=== PATIENT | female | born 1985 | race Caucasian/White ===

== ENCOUNTER 2017-06-20 05:21 | Observation (INO) | payer BC ==
[2017-06-20] MEDS ORDERED: NS 0.9% 1000 ML* 1,000 ML IV ONE (05:45)
[2017-06-20] MEDS ORDERED: Morphine INJ* 2 MG/ML 1 ML SYRINGE IV ONE (05:45)
[2017-06-20 05:56] LABS: Hematocrit 30 % (35-47); Hemoglobin 9.1 g/dl (12.0-16.0); Mean Corpuscular HGB Conc 30 g/dl (31-36); Mean Corpuscular Hemoglobin 20 pg (27-31); Mean Corpuscular Volume 65 fL (80-97); Mean Platelet Volume 9 um3 (7.4-10.4); Red Blood Count 4.59 10^6/ul (4.0-5.4); Red Cell Distribution Width 21 % (10.5-15); White Blood Count 9.2 10^3/ul (3.5-10.8)
[2017-06-20 05:57] LABS: Add Diff/Slide Review? Slide Review Added; Comments Flag Yes
[2017-06-20 06:08] LABS: ALT 61 U/L (7-52); AST 56 U/L (13-39); Albumin 4.2 g/dL (3.2-5.2); Alkaline Phosphatase 56 U/L (34-104); Anion Gap 11 mmol/L (2-11); BUN/Creatinine Ratio 20.3 (8-20); Blood Urea Nitrogen 13 mg/dL (6-24); C Reactive Protein < 1.00 mg/L (< 5.00); CO2 Carbon Dioxide 19 mmol/L (22-32); Chloride 103 mmol/L (101-111); EGFR African American 136.6 (>60); EGFR Non-African American 106.2 (>60); Glucose 143 mg/dL (70-100); Lipase 45 U/L (11.0-82.0); Potassium 3.8 mmol/L (3.5-5.0); Sodium 133 mmol/L (133-145); Total Protein 7.2 g/dL (6.4-8.9)
--- NOTE | 2017-06-20 06:54 | ED ---
I, Oh,Somalgorzata, scribed for Patrice Cornelius MD on 06/20/17 at 0552 . Abdominal Pain/Female - HPI Summary HPI Summary: This 32 y/o female presents to ED via ambulance for gradually worsening diffuse abd pain since 2300 PM tonight. Pt reports that she has had recurrent episodes of similar abd pain since 1+ year ago but has not followed up that she hasn't followed up. "I hate going to doctors". She states that tonight's episode is more persistent and more severe. Positive nausea and dry heaving. Negative diarrhea or dysuria. PMHx includes gastric bypass that was done in [place] in 2012. - History of Current Complaint Chief Complaint: EDAbdPain Stated Complaint: ABD PAIN Time Seen by Provider: 06/20/17 05:40 Hx Obtained From: Patient Onset/Duration: Gradual Onset, Still Present Pain Intensity: 10 Pain Scale Used: 0-10 Numeric Location: Diffuse Radiates: No Character: Dull, Burning Aggravating Factor(s): Nothing Alleviating Factor(s): Nothing Associated Signs and Symptoms: Positive: Nausea. Negative: Fever, Urinary Symptoms, Diarrhea Allergies/Adverse Reactions: Allergies Allergy/AdvReac Type Severity Reaction Status Date / Time No Known Allergies Allergy Verified 06/20/17 05:31 Home Medications: Home Medications Calcium [Oyster-Stan 500] 500 mg PO DAILY 06/20/17 [History Confirmed 06/20/17] Cyanocobalamin TAB* [Vitamin B12 TAB*] 1,000 mcg PO DAILY 06/20/17 [History Confirmed 06/20/17] PMH/Surg Hx/FS Hx/Imm Hx Endocrine/Hematology History: Denies: Hx Diabetes - Surgical History Surgery Procedure, Year, and Place: Gastric Bypass in 2012. [place] Infectious Disease History: No Infectious Disease History: Denies: Traveled Outside the [place] in Last 30 Days - Social History Alcohol Use: None Substance Use Type: Reports: None Smoking Status (MU): Never Smoked Tobacco Review of Systems Negative: Fever Positive: Abdominal Pain, Nausea, Other - Positive dry heaving. Negative: Diarrhea Negative: dysuria All Other Systems Reviewed And Are Negative: Yes Physical Exam Triage Information Reviewed: Yes Vital Signs On Initial Exam: Initial Vitals Temp Pulse Resp BP Pulse Ox 97.3 F 66 16 125/93 100 06/20/17 05:29 06/20/17 05:29 06/20/17 05:29 06/20/17 05:29 06/20/17 05:29 Vital Signs Reviewed: Yes Appearance: Positive: Well-Appearing, Pain Distress - moderate discomfort Skin: Positive: Warm Head/Face: Positive: Normal Head/Face Inspection Eyes: Positive: NORMAN ENT: Positive: Hearing grossly normal Neck: Positive: Supple Respiratory/Lung Sounds: Positive: Breath Sounds Present Cardiovascular: Positive: RRR Abdomen Description: Positive: Soft, Other: - moderate diffuse upper abd tenderness Bowel Sounds: Positive: Present Musculoskeletal: Positive: Strength/ROM Intact Neurological: Positive: Alert, Oriented to Person Place, Time Psychiatric: Positive: Affect/Mood Appropriate - [place] Coma Scale Coma Scale Total: 15 Diagnostics - Vital Signs Vital Signs Temp Pulse Resp BP Pulse Ox 06/20/17 05:29 97.3 F 66 16 125/93 100 - Laboratory Lab Results: Lab Results 06/20/17 06/20/17 06/20/17 Range/Units 05:40 05:40 05:40 WBC 9.2 (3.5-10.8) 10^3/ul RBC 4.59 (4.0-5.4) 10^6/ul Hgb 9.1 L (12.0-16.0) g/dl Hct 30 L (35-47) % MCV 65 L (80-97) fL MCH 20 L (27-31) pg MCHC 30 L (31-36) g/dl RDW 21 H (10.5-15) % Plt Count 343 (150-450) 10^3/ul MPV 9 (7.4-10.4) um3 Neut % (Auto) 82.1 (38-83) % Lymph % (Auto) 10.7 L (25-47) % [place] % (Auto) 4.0 (1-9) % Eos % (Auto) 0.9 (0-6) % Baso % (Auto) 2.3 H (0-2) % Absolute Neuts (auto) 7.5 (1.5-7.7) 10^3/ul Absolute Lymphs (auto) 1.0 (1.0-4.8) 10^3/ul Absolute Monos (auto) 0.4 (0-0.8) 10^3/ul Absolute Eos (auto) 0.1 (0-0.6) 10^3/ul Absolute Basos (auto) 0.2 (0-0.2) 10^3/ul Absolute Nucleated RBC 0 10^3/ul Nucleated RBC % 0 Sodium 133 (133-145) mmol/L Potassium 3.8 (3.5-5.0) mmol/L Chloride 103 (101-111) mmol/L Carbon Dioxide 19 L (22-32) mmol/L Anion Gap 11 (2-11) mmol/L BUN 13 (6-24) mg/dL Creatinine 0.64 (0.51-0.95) mg/dL Est GFR ( Amer) 136.6 (>60) Est GFR (Non-Af Amer) 106.2 (>60) BUN/Creatinine Ratio 20.3 H (8-20) Glucose 143 H (70-100) mg/dL Lactic Acid 2.7 H* (0.5-2.0) mmol/L Calcium 9.0 (8.6-10.3) mg/dL Total Bilirubin 0.40 (0.2-1.0) mg/dL AST 56 H (13-39) U/L ALT 61 H (7-52) U/L Alkaline Phosphatase 56 (34-104) U/L C-Reactive Protein < 1.00 (< 5.00) mg/L Total Protein 7.2 (6.4-8.9) g/dL Albumin 4.2 (3.2-5.2) g/dL Globulin 3.0 (2-4) g/dL Albumin/Globulin Ratio 1.4 (1-3) Lipase 45 (11.0-82.0) U/L Beta HCG, Quant < 0.60 mIU/mL Result Diagrams: 06/20/17 05:40 06/20/17 05:40 Lab Statement: Any lab studies that have been ordered have been reviewed, and results considered in the medical decision making process. - CT Ab/P CT Interpretation Completed By: Radiologist - Pending image. See EMR for official reading Abdominal Pain Fem Course/Dx - Diagnoses Provider Diagnoses: Internal hernia - Provider Notifications Instructed by Provider To: Admit As Inpatient Discharge - Discharge Plan Condition: Fair Disposition: ADMITTED TO [facility] Discharge Disposition Comment: Signed out at shift chage. Pending CT imaging. The documentation as recorded by the scribe Oh,Soohyun accurately reflects the service I personally performed and the decisions made by me, Patrice Cornelius MD.
[2017-06-20] MEDS ORDERED: Iohexol 300* (CONTRAST) 10 ML SDV IV ONE (07:54)
--- NOTE | 2017-06-20 08:31 | RAD ---
Indication: Right upper quadrant pain. Diffuse abdominal pain. Patient is status post Mora-en-Y gastric bypass. Contrast: Administered 97.0 ml of OMNIPAQUE 300 mgi/ml CT of the abdomen and pelvis was performed after oral and IV contrast demonstration. Coronal and sagittal reconstructed images were obtained. The lung bases demonstrate no pleural fluid, nodules or masses. Heart is of normal size without evidence of pericardial effusion. Liver is normal in size. No focal lesions or intrahepatic ductal dilatation is noted. The gallbladder is distended. The pancreas demonstrates no mass or pancreatic duct dilatation. The common duct is not dilated. No pericholecystic fluid or wall thickening is noted. The spleen is normal in size. No adrenal masses are noted. The kidneys demonstrate symmetric nephrograms without focal lesions. There is diffuse edema in the mesentery. There appears to be were pulled following of the superior mesenteric vein surrounding the superior mesenteric artery with central location of the colon. This is suspicious for an internal hernia. There is contrast in the small bowel. A small amount of free fluid is noted in the pelvis. The uterus and ovaries are grossly unremarkable with follicles in both ovaries. IMPRESSION: THERE IS DIFFUSE EDEMA IN THE MESENTERY. THERE IS SPIRALING OF THE SUPERIOR MESENTERIC VEIN SURROUNDING THE SUPERIOR MESENTERIC ARTERY. THERE IS ALSO PERIPHERAL LOCATION OF SMALL BOWEL. THE POSSIBILITY OF AN INTERNAL HERNIA ESPECIALLY AFTER MORA-EN-Y SURGERY SHOULD BE CONSIDERED. Dr. Neal was notified of the results at 8:30 AM.
[2017-06-20 09:33] LABS: Urine Bilirubin Negative (Negative); Urine Glucose Negative (Negative); Urine Nitrite Negative (Negative)
[2017-06-20] MEDS ORDERED: Ondansetron INJ* 2 MG/ML VIAL IV PRN ×2 (10:41→17:01)
[2017-06-20] MEDS ORDERED: ceFAZolin 2 GM PREMIX(*) 2 GM/50 ML BAG IVPB ONE ×2 (10:47→16:07)
[2017-06-20] MEDS ORDERED: Pantoprazole IV* 40 MG IV SCH (11:00)
--- NOTE | 2017-06-20 14:18 | HP ---
AMENDED REPORT NOW INCLUDES COSIGNER DESIGNATION HISTORY AND PHYSICAL: DATE OF ADMISSION: 06/20/17 ATTENDING PHYSICIAN: Arsh Celaya MD * (DICTATED BY [facility]) CHIEF COMPLAINT: Abdominal pain. HISTORY OF PRESENT ILLNESS: Neena is a pleasant 32-year-old female who presented to the emergency room earlier this morning with complaints of worsening diffuse abdominal pain since 11 o'clock last night. Patient notes that she had similar recurrent episodes of abdominal pain for the past year or so but she has never had to follow up with any physician. She went to the urgent care clinic 1 time about a year ago with similar complaints of pain and was diagnosed with acid reflux for which she has been taking Zantac on intermittent basis. She described last night episode as the worst abdominal pain she ever had. It was sharp and intense, 10/10, localize to the middle abdomen and left upper quadrant with no radiation. She also described associated nausea and dry heaving, but denies any vomiting, changes in the bowel habits or any other associated symptoms. She also had some "chills," but denies any fever, dysuria, flank pain, or any history of urinary issues. It is to be noted that patient had a gastric bypass surgery done in [place], [place] in March of 2013. She has done extremely well after her surgery and lost approximately 105 pounds up-to-date. She had followed up with her bariatric program down in [place] for the first year, but then after that she had decided to manage her own followup visit with her primary care physician. She otherwise is extremely healthy 32-year-old female with no significant past medical history with the exception of morbid obesity. During her ER visit, she had laboratory workup that revealed anemia as well as a CT scan of the abdomen and pelvis that was concerning for the possibility of internal hernia with twisting of mesenteric vein as well as mesenteric edema. Given her ongoing symptoms and the finding of the CT scan, we were asked to see the patient for further evaluation of abdominal pain. PAST MEDICAL HISTORY: Significant for morbid obesity for which the patient had gastric bypass surgery in 2012. She denies any history of lung, liver, heart or kidney disease. PAST SURGICAL HISTORY: Significant for laparoscopic Mora-en-Y gastric bypass in [place], [place] in March of 2013. She also had wisdom teeth extraction years ago. CURRENT MEDICATIONS: Her medications at home include: 1. Calcium supplement 500 mg tablet once daily. 2. Vitamin B12 tablets 1000 mcg once daily. ALLERGIES: She has no known drug allergies. FAMILY HISTORY: Noncontributory. SOCIAL HISTORY: Patient is a nonsmoker, who denies alcohol intake and caffeine intake is minimal. REVIEW OF SYSTEMS: See HPI, otherwise negative. She admits to abdominal pain, intermittent with worst episode ever started last night with associated nausea and dry heaving, but denies any vomiting, recent changes in the bowel habits, melena, or bleeding per rectum. She denies any chest pain, shortness of breath , palpitation, sore throat, or cough. No back pain, flank pain, dysuria, hematuria, or urinary frequency. She had dry chills last night but denies any fever, night sweats, or recent weight loss. PHYSICAL EXAMINATION GENERAL: She is a pleasant, healthy-appearing young female, in no acute distress or discomfort at the time of admission. VITAL SIGNS: Her most recent set of vitals revealed a temperature of 97.3, pulse of 82, respiration of 19, O2 sat of 98% on room air, and blood pressure of 115/80. HEENT: Sclerae anicteric, PERRLA, EOMs intact. Oropharynx is pink, moist with no exudate. NECK: Supple. Trachea midline. No cervical adenopathy, thyromegaly or JVD. LUNGS: Clear to auscultation bilaterally. HEART: Regular rate and rhythm. Normal S1 and S2 without rubs, murmurs, or gallops. BACK: With normal curvature. No CVA tenderness. BREASTS: Deferred at this time. ABDOMEN: Soft and nondistended. There is moderate periumbilical and left upper quadrant tenderness noted on deep palpation. There is no guarding, rigidity, or rebound tenderness. Old incisions from prior bypass surgery are well healed. There is no evidence of ventral hernia. There is no other hernias , masses, or hepatosplenomegaly. EXTREMITIES: Without cyanosis, clubbing, or edema. RECTAL: Deferred at this time. NEUROLOGIC: Grossly intact. LABORATORY WORKUP: CBC obtained earlier this morning was white count of 9000, hemoglobin 9.1, hematocrit of 30, and platelets of 343. Her chemistry showed sodium of 133, potassium 3.8, chloride 103, CO2 of 19, BUN 13, and creatinine of 0.6. Her glucose was 143. LFTs, C-reactive protein, amylase and lipase essentially within normal limits. Her lactic acid was elevated with value of 2.7. ACCESSORY DIAGNOSTIC DATA: Patient had a CT scan of the abdomen and pelvis as mentioned above that showed diffuse edema of the mesentery with spiraling of the superior mesenteric vein surrounding the superior mesenteric artery with also peripheral location of the small bowel, all consistent was possibility of internal hernia in the setting of Mora-en-Y bypass. IMPRESSION: A 32-year-old female, status post laparoscopic Mora-en-Y gastric bypass in March of 2015 with acute onset of abdominal pain and CT scan finding with high possibility of internal hernia. PLAN: The case was discussed with Dr. Celaya, who is covering for bariatric services at [facility]. Given her ongoing symptoms and the finding of the CT scan, we discussed with her admission for observation under surgical services and the likelihood of taking her to the operating room this afternoon for a diagnostic laparoscopy. The rationale, indications, risks, and benefits of surgery were discussed with her today. Risks include but not limited to infection, bleeding , or injury to adjacent structures. We stressed with her the importance of laparoscopic possible open evaluation given that significant mesenteric edema and the high risk of any mesenteric occlusion or small bowel necrosis given her internal hernia. Patient will be directly admitted under surgical services. We will keep her NPO and will provide the PPI and DVT prophylaxis. She will be likely taken to the operating room this afternoon for a diagnostic laparoscopy, possible laparotomy and repair of internal hernia. [facility] [place] [id number]/[facility] #: [id number] KIMBERLY
[2017-06-20] MEDS ORDERED: Bupivacaine 0.25% SDV* 30 ML ONE (15:02)
[2017-06-20] MEDS ORDERED: Bupivacaine 0.5% W/EPI SDV* 10 ML VIAL INJ ONE (15:03)
[2017-06-20] MEDS ORDERED: Buffered Lidocaine 0.9% SYRIN* 5 ML/SYR SYRINGE ONE (15:35)
[2017-06-20] MEDS ORDERED: Midazolam* 1 MG/ML 2 ML VIAL (2 MG) ONE (15:45)
[2017-06-20] MEDS ORDERED: fentaNYL* 50 MCG/ML 2 ML VIAL (100 MCG VIAL) ONE ×2 (15:45→17:04)
[2017-06-20] MEDS ORDERED: Famotidine IV* 10 MG/ML 2 ML (20 mg) ONE (16:34)
[2017-06-20] MEDS ORDERED: Dexamethasone IV* 4 MG/ML 1 ML (4 MG) ONE (16:34)
[2017-06-20] MEDS ORDERED: Ondansetron INJ* 2 MG/ML VIAL ONE (16:34)
[2017-06-20] MEDS ORDERED: Propofol* 10 MG/ML 20 ML BTL IV PUSH ONE (16:34)
[2017-06-20] MEDS ORDERED: Succinylcholine* 20 MG/ML 10 ML VIAL ONE (16:34)
[2017-06-20] MEDS ORDERED: Lidocaine 2% PF * 5 ML VIAL ONE (16:34)
[2017-06-20] MEDS ORDERED: Cisatracurium* 2 MG/ML MDV 5 ML ONE (16:34)
--- NOTE | 2017-06-20 16:34 | ED ---
Mack Vtiale Thomas, scribed for Ese Beatty MD on 06/20/17 at 0832 . Progress - Progress Note Progress Note: The patient is a sign out from Dr. Cornelius, pending labs and CT results. CT Abd/Pel reveals THERE IS DIFFUSE EDEMA IN THE MESENTERY. THERE IS SPIRALING OF THE SUPERIOR MESENTERIC VEIN SURROUNDING THE SUPERIOR MESENTERIC ARTERY. THERE IS ALSO PERIPHERAL LOCATION OF SMALL BOWEL. THE POSSIBILITY OF AN INTERNAL HERNIA ESPECIALLY AFTER RUDOLPH-EN-Y SURGERY SHOULD BE CONSIDERED, personally communicated by Dr. Dodge at 0827 to me. At examination at 09:01, the patent supplied additional history. She reports LUQ abd pain. She reports that she lost 110 pounds after her Rudolph-En surgery at [facility]. She additionally c/o dry heaving. The pt denies diarrhea and bloody stools. LNMP 2 weeks ago (pt notes that it is irregular). She takes a multivitamin and B12 daily. PMHx: previously health. PSHx: wisdom teeth removal. SHx: no alcohol/tobacco/drugs. FHx: rheumatoid arthritis. I also talked to Dr. Manning at 09:30, who informed me that one of us will be in . UA reveals specific gravity 1.059, 2+ ketones. Course/Dx - Diagnoses Provider Diagnoses: Internal hernia - Provider Notifications Discussed Care Of Patient With: Kenzie Dodge Time Discussed With Above Provider: 08:27 Instructed by Provider To: Admit As Inpatient - Dr Dodge, radiology, is suspicious for internal hernia on her CT Abd/Pel; Discussed with Jesus Terrell PA evaluated pt with Dr. Celaya, media monitor for bariatric surg. Admit surg, to OR The documentation as recorded by the Mack joshua Thomas accurately reflects the service I personally performed and the decisions made by me, Ese Beatty MD.
[2017-06-20] MEDS ORDERED: Buffered Lidocaine 0.9% SYRIN* 5 ML/SYR SYRINGE INTRADERM ONE (17:00)
[2017-06-20] MEDS ORDERED: HYDROmorphone* 1 MG/ML 1 ML SYR IV PRN (17:01)
[2017-06-20] MEDS ORDERED: fentaNYL* 50 MCG/ML 2 ML VIAL (100 MCG VIAL) IV PRN (17:01)
[2017-06-20] MEDS ORDERED: PROCHLORPERAZINE INJ 5 MG/ML 2 ML VIAL IV PRN (17:01)
[2017-06-20] MEDS ORDERED: DiMENhydriNATE IV* 50 MG/ML VIAL IV PUSH PRN (17:01)
[2017-06-20] MEDS ORDERED: Acetaminophen TAB* 325 MG PO PRN (17:01)
[2017-06-20] MEDS ORDERED: Ketorolac INJ* 30 MG/ML 1 ML VIAL ONE (18:01)
--- NOTE | 2017-06-20 18:04 | SURGPN ---
Brief Operative Note - Surgery Procedures: Pre-OP Diagnoses: abdominal pain Post-op Diagnosis: Internal hernia Procedure: Diagnostic laparoscopy, repair of internal hernia Surgeon: Belia Asst: Josefina CLEMENTS Anethesia: CYN EBL: minimal IVF: 800cc LR Specimen: none Drains: none Findings internal hernia Complications: None
[2017-06-20] MEDS: HYDROmorphone* 1 MG/ML 1 ML SYR IV PRN (21:55)
[2017-06-21] MEDS: HYDROmorphone* 1 MG/ML 1 ML SYR IV PRN (06:37)
--- NOTE | 2017-06-21 08:23 | SURGPN ---
Subjective - Introduction -: Admitted on: 06/20/2017 Patient's surgical date: 06/20/2017 Procedure completed: Diagnostic laparoscopy with primary repair of internal hernia - Medications -: Active Medications Generic Name Dose Route Start Last Admin Trade Name Siena PRN Reason Stop Dose Admin Hydromorphone HCl 0.5 mg 06/20/17 10:41 06/21/17 06:37 Dilaudid Iv* IV 0.5 mg Q1H PRN Administration PAIN - SEVERE Lactated Ringer's 1,000 mls @ 125 mls/hr 06/20/17 17:00 06/21/17 02:13 Lactated Ringers 1000 Ml Bag* IV 125 mls/hr PER RATE CARLINE Administration Ondansetron HCl 4 mg 06/20/17 10:41 Zofran Inj* IV Q4H PRN NAUSEA/VOMITING Pantoprazole Sodium 40 mg 06/20/17 11:00 06/20/17 11:12 Protonix Iv* IV 40 mg Q24H CARLINE Administration - Comments Comments: Reports doing much better this AM. Minimal incisional pain, no nausea or vomiting. Tolerating clear liquids. Ambulatory, no flatus, but she feels " a lot or rumbling" in her abdomen. Wants to go home. Objective - Objective -: Awake and alert, comfortable in bed, in NAD. - Intake and Output -: Intake & Output 06/19/17 06/20/17 06/21/17 06/22/17 06:59 06:59 06:59 06:59 Intake Total 3570 Output Total 1200 Balance 2370 Weight 160 lb Intake: IV Fluids 1870 LR 1820 NS 50ML, Cefazolin 2G 50 IVPB 500 LR 500 Oral 1200 Output: Urine 1200 Other: # Bowel Movements 0 Surgical Physical Exam - Comments -: VSS, afebrile Lungs CTA bilat. Heart RRR, no murmurs. Abdomen soft, non-tender and non-distended. Incisions clean, dry and intact. No guarding, rigidity or rebound tenderness. Ext. without edema. Assessment and Plan - Assessment -: A 32 y/o female, POD#1, s/p diagnostic laparoscopy with repair of internal hernia in 4 year out [facility] patient, doing very well. - Plan Additional Comments: Will advnace diet slowly as tolerated. D/C IVF D/C to home later this AM F/U with surgical office next week.
[2017-06-21 09:23] VITALS: BP 107/64
--- NOTE | 2017-06-21 12:45 | OP ---
CC: Roshan Landeros PA-C; Bariatric Department, [facility]; [facility] OPERATIVE REPORT: DATE OF OPERATION: 06/20/17 DATE OF : 81 SURGEON: Arsh Celaya MD MENTAL RETARDATION NURSE: TYREE Young ANESTHESIOLOGIST: Dr. Pendleton. ANESTHESIA: General. PRE-OP DIAGNOSIS: Abdominal pain. POST-OP DIAGNOSIS: Internal hernia. OPERATIVE PROCEDURE: Diagnostic laparoscopy and repair of internal hernia. INDICATIONS: Ms. Foster is a 32-year-old female, status post Mora-en-Y gastric bypass, who presen jody to our institution with complaints of abdominal pain, acute onset. She underwent a workup inclu ding CAT scan and labs and there was a concern for an internal hernia. I examined her and recommend ed diagnostic laparoscopy. FINDINGS: Internal hernia. ESTIMATED BLOOD LOSS: Minimal. FLUIDS: 800 cc of crystalloid fluid given. DRAINS: None. DESCRIPTION OF PROCEDURE: I outlined the details of the procedure going over the risks, benefits, a nd alternatives of the procedure, which included but not limited to bleeding, infection, bowel injur y, need for additional procedures, need for open procedure, the possibility of recurrence, and possi bility of nondiagnostic surgery. The patient agreed, signed consent, was taken to the operating room , placed on the operating table in the supine position. Preoperative antibiotics were given. Sequen tial devices were placed on bilateral lower extremities. General anesthesia was induced. A Oreilly c atheter was inserted. The patient's abdomen was prepped and draped in the standard surgical fashion and a time-out was performed. Folds of the umbilicus were elevated anteriorly and a Veress needle was inserted into the abdominal cavity, which was then allowed to insufflate to a pressure of 15 mmHg. The patient tolerated the in sufflation well. A right upper quadrant incision was made and a trocar was inserted through this. Laparoscope was inserted and there was no evidence of injury from the trocar insertion or from the V eress needle, which was then removed. Additional two 5-mm trocars were placed in the supraumbilical area and at the left lower quadrant. Review of the abdomen showed normal pink bowel without any evidence of ischemia. 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 The terminal ileum was then identified and the small bowel was run retrograde. The hernia was reduced. It was unclear where the location was and the orientation of the Mora limb , biliopancreatic limb, and combined limb were all placed in a proper orientation. Review of the jejunojejunostomy showed that it was intact. There was no mesenteric defect at this s ite. Attention to the stomach pouch showed that it was appropriate size with good attachment to the Mora limb and no evidence of scarring at this site. Gallbladder was mildly distended, but without any in flammatory changes. Attention was turned towards the retro Mora opening as it went over the transverse colon. This look ed likely spot for internal herniation and, therefore, it was obliterated with interrupted 2-0 silk sutures in figure-of-8 fashion, starting at the base of the small bowel mesentery and suturing this to the transverse mesocolon and this was taken right up to the colon and review of the suture line s howed that it was completely closed. There was mild hematoma on one of the of the Mora limb m esentery, but this was limited. We then suctioned some of the chylous ascites off and allowed the a bdomen to collapse. Trocars were removed under direct vision and all 3 skin incisions were reapprox imated with 4-0 Monocryl subcuticular sutures. Sterile dressing was applied. The patient tolerated the procedure well and was transferred to the PACU in stable condition. [id number]/[facility] #: [id number]
--- NOTE | 2017-06-21 21:05 | DS ---
DISCHARGE SUMMARY: DATE OF ADMISSION: 06/20/17 DATE OF DISCHARGE: 06/21/17 ADMISSION DIAGNOSIS: Abdominal pain. DISCHARGE DIAGNOSES: 1. Abdominal pain. 2. Bariatric surgery status. 3. Internal hernia. ADMITTING PHYSICIAN: Arsh Celaya MD * (DICTATED BY TYREE PACHECO) CONSULTATIONS: None. PROCEDURE: Diagnostic laparoscopy with repair of internal hernia on 06/20/17. BRIEF MEDICAL HISTORY: Neena is a pleasant 32-year-old female who presented to the emergency room earlier that morning with complaints of worsening diffuse abdominal pain since the night before. She notes similar complaints of recurrent episodes of abdominal pain for the past year or so, but usually it resolved on its own within 24 hours. She had a laparoscopic Mora-en-Y gastric bypass back in [place], [place] in March 2013 and has done extremely well after that with a total weight loss of 105 pounds. She notes that she was in her usual state of health until that morning when her pain intensified and got worse. She presented to the emergency room and had a CT scan of the abdomen and pelvis that revealed mesenteric edema with spiralling of the mesenteric vein and other findings consistent with probable internal hernia. HOSPITAL COURSE: Given her ongoing pain and a CT scan finding with a known history of bypass surgery 4 years ago, the patient was directly admitted under surgical services. We discussed with her proceeding with a diagnostic laparoscopy for further evaluation of her abdominal pain. She was taken to the operating room in the afternoon hours of 06/20/17 where she had a diagnostic laparoscopy that revealed internal hernia that was repaired primarily with silk sutures. Her bowel was ran twice and there was no evidence of any obstruction or other abnormalities. Her Mora-en-Y bypass anatomy appeared to be intact. After surgery, she was taken to the recovery room in a stable condition. She was kept overnight for observation. She was started on clear liquid diet that she tolerated very well. Her pain next morning was very minimal and she denied any nausea or vomiting. She was ambulatory, out of bed and in stable condition. She will be discharged to home later this morning and will follow up with the [facility] office next week. DISCHARGE MEDICATIONS: Include: 1. Calcium supplement 500 mg once daily. 2. Vitamin B12 tablet 1000 mcg once daily. 3. Donalds 5/325 mg 1 to 2 tablets q.6 hours as needed for pain. PROBLEM LIST: 1. Bariatric surgery status. 2. Abdominal pain, status post diagnostic laparoscopy with repair of internal hernia on 06/20/17. TYREE PACHECO [id number]/[facility] #: [id number] MTDD
== END 2017-06-21 09:45 | disposition home or self-care (01) ==
LOC: MERGE 05:21 → ED 05:21 → SSU 11:24
PROVIDERS: ADMIT Surgery; ATTEND Surgery
DX: K45.8 Other specified abdominal hernia without obstruction or gangrene (principal); Z98.84 Bariatric surgery status; R18.8 Other ascites; R10.11 Right upper quadrant pain
CPT/HCPCS: 36415; 74177; 80053; 81003; 83605; 83690; 84702; 85025; 86140; 96374; 99284; J0330; J0690; J1100; J1170; J1885; J2250; J2270; J2405; J2704; J3010; Q9967

== ENCOUNTER 2019-05-13 15:55 | Emergency (ER) | payer SELFPAY ==
--- NOTE | 2019-05-13 17:44 | ED ---
Lower Extremity - HPI Summary HPI Summary: patient had gastric bypass in 2013---she has not had labs checked for the past 2 years---does drink a lot of water----no recent n/v/d she is in ED tonight with c/o increasing and worsening muscle cramping-- - History of Current Complaint Chief Complaint: EDExtremityLower Stated Complaint: MUSCLAR PAIN IN LEGS Time Seen by Provider: 05/13/19 17:55 Hx Obtained From: Patient Mechanism Of Injury: Other - none Onset/Duration: Resolved Severity Initially: Moderate Severity Currently: None Pain Intensity: 0 Timing: Intermittent Location: Is Diffuse Character Of Pain: Spasmodic Associated Signs And Symptoms: Positive: Negative Aggravating Factor(s): Nothing Alleviating Factor(s): Nothing Able to Bear Weight: Yes - Allergies/Home Medications Allergies/Adverse Reactions: Allergies Allergy/AdvReac Type Severity Reaction Status Date / Time No Known Allergies Allergy Verified 05/13/19 16:03 Home Medications: Home Medications Multivitamin [Multivitamins] 1 cap PO DAILY 05/13/19 [History Confirmed 05/13/19 ] PMH/Surg Hx/FS Hx/Imm Hx Previously Healthy: No Endocrine/Hematology History: Reports: Hx Anemia Denies: Hx Diabetes Cardiovascular History: Denies: Hx Hypertension GI History: Reports: Hx Gastroesophageal Reflux Disease History: Denies: Hx Renal Disease Sensory History: Denies: Hx Contacts or Glasses, Hx Hearing Aid Opthamlomology History: Denies: Hx Contacts or Glasses - Surgical History Surgery Procedure, Year, and Place: Gastric Bypass in 2013. [facility] Cueto Hx Anesthesia Reactions: No Infectious Disease History: No Infectious Disease History: Denies: Traveled Outside the [place] in Last 30 Days - Social History Occupation: Employed Full-time Lives: With Family Alcohol Use: None Hx Substance Use: No Substance Use Type: Reports: None Hx Tobacco Use: No Smoking Status (MU): Never Smoked Tobacco Review of Systems Constitutional: Negative Eyes: Negative ENT: Negative Cardiovascular: Negative Respiratory: Negative Gastrointestinal: Negative Genitourinary: Negative Positive: Myalgia, Other - muscle cramping Skin: Negative Neurological: Negative Psychological: Normal All Other Systems Reviewed And Are Negative: Yes Physical Exam Triage Information Reviewed: Yes Vital Signs On Initial Exam: Initial Vitals Temp Pulse Resp BP Pulse Ox 98.4 F 84 16 129/73 99 05/13/19 15:58 05/13/19 15:58 05/13/19 15:58 05/13/19 15:58 05/13/19 15:58 Vital Signs Reviewed: Yes Appearance: Positive: Well-Appearing, No Pain Distress, Well-Nourished Skin: Positive: Warm, Skin Color Reflects Adequate Perfusion Head/Face: Positive: Normal Head/Face Inspection Eyes: Positive: Normal, EOMI, [place] ENT: Positive: Normal ENT inspection, Hearing grossly normal. Negative: Trismus , Muffled voice, Hoarse voice Neck: Positive: Supple, Nontender, No Lymphadenopathy Respiratory/Lung Sounds: Positive: Clear to Auscultation, Breath Sounds Present Cardiovascular: Positive: Normal, RRR, Pulses are Symmetrical in both Upper and Lower Extremities Musculoskeletal: Positive: Normal, Strength/ROM Intact Neurological: Positive: Normal, Sensory/Motor Intact, Alert, Oriented to Person Place, Time, CN Intact II-III Psychiatric: Positive: Normal AVPU Assessment: Alert - [place] Coma Scale Best Eye Response: 4 - Spontaneous Best Motor Response: 6 - Obeys Commands Best Verbal Response: 5 - Oriented Coma Scale Total: 15 Diagnostics - Vital Signs Vital Signs Temp Pulse Resp BP Pulse Ox 05/13/19 15:58 98.4 F 84 16 129/73 99 - Laboratory Result Diagrams: 05/13/19 18:15 05/13/19 18:15 Lab Statement: Any lab studies that have been ordered have been reviewed, and results considered in the medical decision making process. Lower Extremity Course/Dx - Course Assessment/Plan: d/c to home-stretch, increase fluids, follow with pcp-- - Diagnoses Provider Diagnoses: Muscle cramping Discharge - Sign-Out/Discharge Documenting (check all that apply): Patient Departure Patient Received Moderate/Deep Sedation with Procedure: No - Discharge Plan Condition: Stable Disposition: HOME Patient Education Materials: Leg Cramps (ED), Muscle Cramp (ED) Referrals: Roshan Landeros JR PA [Primary Care Provider] - 3 Days - Billing Disposition and Condition Condition: STABLE Disposition: Home
[2019-05-13 18:25] LABS: ABS Basophils 0.1 10^3/ul (0-0.2); ABS Eosinophils 0.1 10^3/ul (0-0.6); ABS Lymphocytes 1.8 10^3/ul (1.0-4.8); ABS Monocytes 0.5 10^3/ul (0-0.8); ABS Neutrophils 4.4 10^3/ul (1.5-7.7); Eosinophil % 1.5 %; Hematocrit 33 % (35-47); Hemoglobin 10.5 g/dL (12.0-16.0); Mean Corpuscular HGB Conc 32 g/dL (31-36); Mean Corpuscular Hemoglobin 23 pg (27-31); Mean Corpuscular Volume 73 fL (80-97); Mean Platelet Volume 7.6 fL (7.4-10.4); Nucleated Red Blood Cells % 0.1; Platelet Count 329 10^3/uL (150-450); Red Blood Count 4.57 10^6 /uL (3.70-4.87); Red Cell Distribution Width 18 % (10-15); White Blood Count 6.9 10^3/uL (3.5-10.8)
[2019-05-13 18:39] LABS: Albumin 4.3 g/dL (3.2-5.2); Albumin/Globulin Ratio 1.5 (1-3); BUN/Creatinine Ratio 17.9 (8-20); Calcium 9.4 mg/dL (8.6-10.3); EGFR African American 92.8 (>60); EGFR Non-African American 76.7 (>60); Globulin 2.9 g/dL (2-4); Magnesium 2.3 mg/dL (1.9-2.7); Potassium 4.3 mmol/L (3.5-5.0); Total Bilirubin 0.4 mg/dL (0.2-1.0); Total Protein 7.2 g/dL (6.4-8.9)
[2019-05-13 18:45] LABS: Microcytosis 2+
[2019-05-13 19:33] LABS: Urine Appearance Cloudy; Urine Bilirubin Negative (Negative); Urine Blood Negative (Negative); Urine Color Yellow; Urine Glucose Negative (Negative); Urine Ketones Negative (Negative); Urine Nitrite Negative (Negative); Urine Protein Negative (Negative); Urine Specific Gravity 1.017 (1.010-1.030); Urine Urobilinogen Negative (Negative)
[2019-05-13 19:56] VITALS: BP 122/59
== END 2019-05-13 18:55 | disposition home or self-care (01) ==
LOC: ED 15:55
DX: R25.2 Cramp and spasm (principal); D64.9 Anemia, unspecified; Z98.84 Bariatric surgery status
CPT/HCPCS: 36415; 80053; 81003; 83735; 85025; 99283

== ENCOUNTER 2024-02-27 01:29 | Observation (INO) ==
[2024-02-27] MEDS: Morphine 4 MG/ML VIAL (1 ml) IV ONE (01:47)
[2024-02-27] MEDS: Lactated Ringers 1000 ml BAG 1,000 ML IV ONE (01:48)
[2024-02-27] MEDS: Ondansetron 4 mg VIAL 2 MG/ML 2 ml VIAL IV ONE (01:48)
[2024-02-27 02:24] LABS: ALT 28 U/L (7-52); AST 32 U/L (13-39); Albumin 4.5 g/dL (3.2-5.2); Albumin/Globulin Ratio 1.8 (1-3); Alkaline Phosphatase 70 U/L (35-149); Anion Gap 8 mmol/L (2-16); Blood Urea Nitrogen 14 mg/dL (6-24); C Reactive Protein < 1.00 mg/L (<8.01); CO2 Carbon Dioxide 21 mmol/L (22-32); Calcium 9.4 mg/dL (8.6-10.3); Chloride 108 mmol/L (101-111); Creatinine, Serum 0.67 mg/dL (0.51-0.95); Globulin 2.5 g/dL (2-4); Glucose 128 mg/dL (70-100); Lipase 73 U/L (11.0-82.0); Potassium 3.7 mmol/L (3.5-5.0); Sodium 137 mmol/L (135-145); Total Bilirubin 0.3 mg/dL (0.2-1.0); eGFR CKD-EPI 113.2 (>60)
[2024-02-27 02:30] LABS: ABS Basophils 0.2 10^3/uL (0.0-0.1); ABS Eosinophils 0.2 10^3/uL (0.0-0.5); ABS Lymphocytes 2.4 10^3/uL (1.0-4.8); ABS Monocytes 0.4 10^3/uL (0.0-0.9); ABS Neutrophils 7.1 10^3/uL (1.5-7.6); ABS Nucleated RBC 0.01 10^3/ul; Anisocytosis 2+; Eosinophil % 2.3 %; Hematocrit 33.5 % (35-45); Hemoglobin 10.4 g/dL (11.5-14.3); Lymphocyte % 23.4 %; Mean Corpuscular Hemoglobin 20.3 pg (27-33); Mean Corpuscular Hgb Conc 31.1 g/dL (31-36); Mean Corpuscular Volume 65.3 fL (80-97); Mean Platelet Volume 8.7 fL (7.5-11.2); Microcytosis 2+; Platelet Count 388 10^3/uL (150-450); Red Blood Count 5.13 10^6/uL (3.63-4.92); Red Cell Distribution Width 20.6 % (12-17); White Blood Count 10.3 10^3/uL (3.8-11.8)
[2024-02-27 02:31] LABS: HCG Pregnancy < 0.60 mIU/mL
[2024-02-27] MEDS: Iohexol 300 (CONTRAST) 10 ML SDV IV ONE (02:54)
[2024-02-27] MEDS: Lactated Ringers 1000 ml BAG 1,000 ML IV SCH (04:51)
[2024-02-27] MEDS: Ondansetron 4 mg VIAL 2 MG/ML 2 ml VIAL IV PRN (05:01)
[2024-02-27] MEDS: HYDROmorphone 1 MG/1 ML SYRINGE IV SLOW PU PRN (05:02)
[2024-02-27] MEDS ORDERED: Acetaminophen IV 1 GM/100ML 1,000 MG/100 ML BAG IV ONE (13:09)
[2024-02-27] MEDS: Acetaminophen IV 1 GM/100ML 1,000 MG/100 ML BAG IV PRN (13:11)
[2024-02-27] MEDS ORDERED: Bupivacaine 0.25% EPI 200,000 30 ML SDV ONE (15:39)
[2024-02-27] MEDS ORDERED: Ondansetron 4 mg VIAL 2 MG/ML 2 ml VIAL IV PRN (15:49)
[2024-02-27] MEDS ORDERED: Naloxone 0.4 mg VIAL 0.4 mg/ml 1 ml VIAL IV PRN (15:49)
[2024-02-27] MEDS ORDERED: fentaNYL 100 mcg/2 ml 50 MCG/ML VIAL IV PRN (15:49)
[2024-02-27] MEDS ORDERED: fentaNYL 100 mcg/2 ml 50 MCG/ML VIAL ONE (16:46)
[2024-02-27] MEDS ORDERED: Midazolam 2 mg/2 ml VIAL 1 mg/ml 2 ml VIAL (2 mg) ONE (16:46)
[2024-02-27] MEDS ORDERED: Rocuronium 50 mg VIAL 10 mg/ml 5 ml VIAL (50 mg) ONE ×2 (16:50→17:28)
[2024-02-27] MEDS ORDERED: Propofol 10 MG/ML 20 ML BTL ONE (16:50)
[2024-02-27] MEDS ORDERED: Metoclopramide 5 MG/ML VIAL (10 mg) ONE (16:58)
[2024-02-27] MEDS ORDERED: Dexamethasone IV 4 MG/ML VIAL 1 ml VIAL ONE (16:58)
[2024-02-27] MEDS ORDERED: Ondansetron 4 mg VIAL 2 MG/ML 2 ml VIAL ONE (16:59)
[2024-02-27 19:58] VITALS: BP 113/74
== END 2024-02-27 19:45 | disposition home or self-care (01) ==
LOC: ED 01:29 → EDHOLD 01:29 → AA 14:32
PROVIDERS: ADMIT Surgery; ATTEND Surgery

== ENCOUNTER 2024-04-26 20:16 | Observation (INO) ==
[2024-04-26] MEDS: Lactated Ringers 1000 ml BAG 1,000 ML IV ONE (21:58)
[2024-04-26] MEDS: Ondansetron 4 mg VIAL 2 MG/ML 2 ml VIAL IV ONE (21:58)
[2024-04-26 23:03] LABS: ALT 31 U/L (7-52); AST 32 U/L (13-39); Albumin 4.8 g/dL (3.2-5.2); Albumin/Globulin Ratio 1.8 (1-3); Alkaline Phosphatase 88 U/L (35-149); Anion Gap 10 mmol/L (2-16); Blood Urea Nitrogen 17 mg/dL (6-24); C Reactive Protein < 1.00 mg/L (<8.01); CO2 Carbon Dioxide 23 mmol/L (22-32); Calcium 9.4 mg/dL (8.6-10.3); Chloride 105 mmol/L (101-111); Creatinine, Serum 0.62 mg/dL (0.51-0.95); Globulin 2.6 g/dL (2-4); Glucose 181 mg/dL (70-100); Lipase 48 U/L (11.0-82.0); Magnesium 1.8 mg/dL (1.9-2.7); Potassium 4.3 mmol/L (3.5-5.0); Sodium 138 mmol/L (135-145); Total Bilirubin 0.4 mg/dL (0.2-1.0); Total Protein 7.4 g/dL (6.4-8.9); eGFR CKD-EPI 114.7 (>60)
[2024-04-26 23:49] LABS: ABS Basophils 0.1 10^3/uL (0.0-0.1); ABS Lymphocytes 0.8 10^3/uL (1.0-4.8); ABS Monocytes 0.2 10^3/uL (0.0-0.9); ABS Neutrophils 11.8 10^3/uL (1.5-7.6); Anisocytosis 2+; Eosinophil % 0.1 %; Hemoglobin 10.1 g/dL (11.5-14.3); Lymphocyte % 5.9 %; Mean Corpuscular Hemoglobin 20.1 pg (27-33); Mean Corpuscular Hgb Conc 30.4 g/dL (31-36); Mean Corpuscular Volume 66.1 fL (80-97); Mean Platelet Volume 7.7 fL (7.5-11.2); Microcytosis 2+; Platelet Count 448 10^3/uL (150-450); Red Cell Distribution Width 20.1 % (12-17); White Blood Count 12.8 10^3/uL (3.8-11.8)
[2024-04-27] MEDS: Iohexol 350 (CONTRAST) 500 ML MDV IV ONE (00:55)
[2024-04-27] MEDS: Magnesium Sulfate 2 gm BAG 2 GM/50 ML BAG IVPB ONE (01:41)
[2024-04-27 01:43] LABS: Phosphorus 4.9 mg/dL (2.5-5.0)
[2024-04-27] MEDS ORDERED: HYDROmorphone 1 MG/1 ML SYRINGE IV SLOW PU PRN (02:37)
[2024-04-27] MEDS ORDERED: Ondansetron 4 mg VIAL 2 MG/ML 2 ml VIAL IV PRN (02:37)
[2024-04-27] MEDS: Lactated Ringers 1000 ml BAG 1,000 ML IV SCH (03:03)
[2024-04-27 03:14] LABS: Urine Appearance Clear; Urine Bilirubin Negative (Negative); Urine Blood Negative (Negative); Urine Color Light-Yellow; Urine Glucose Negative (Negative); Urine Ketones Negative (Negative); Urine Nitrite Negative (Negative); Urine Protein Negative (Negative); Urine Specific Gravity 1.045 (1.002-1.030); Urine Urobilinogen Negative (Negative)
[2024-04-27] MEDS: Acetaminophen IV 1 GM/100ML 1,000 MG/100 ML BAG IV ONE (03:34)
[2024-04-27 09:51] LABS: Hematocrit 24.5 % (35-45); Hemoglobin 7.8 g/dL (11.5-14.3); Mean Corpuscular Hemoglobin 20.8 pg (27-33); Mean Corpuscular Hgb Conc 31.9 g/dL (31-36); Mean Corpuscular Volume 65.1 fL (80-97); Mean Platelet Volume 7.7 fL (7.5-11.2); Platelet Count 311 10^3/uL (150-450); Red Blood Count 3.76 10^6/uL (3.63-4.92); Red Cell Distribution Width 19.7 % (12-17); White Blood Count 9.3 10^3/uL (3.8-11.8)
[2024-04-27 10:17] LABS: ABS Basophils 0.1 10^3/uL (0.0-0.1); ABS Eosinophils 0.1 10^3/uL (0.0-0.5); ABS Lymphocytes 2.3 10^3/uL (1.0-4.8); ABS Monocytes 0.6 10^3/uL (0.0-0.9); ABS Neutrophils 6.3 10^3/uL (1.5-7.6); ABS Nucleated RBC 0.01 10^3/ul; Eosinophil % 1.1 %; Lymphocyte % 24.1 %; Nucleated Red Blood Cells % 0.1 %/100WBC (0.0-0.8)
[2024-04-27 10:55] VITALS: BP 119/69
== END 2024-04-27 13:50 | disposition home or self-care (01) ==
LOC: ED 20:16 → EDHOLD 20:16 → SSU 04-27 07:50
PROVIDERS: ADMIT Surgery; ATTEND Surgery